=== PATIENT | male | born 1995 | race Two or more races ===

== ENCOUNTER 2023-12-03 12:54 | Emergency (ER) | payer SELFPAY ==
[2023-12-03] MEDS: OLANZapine 10 MG in Water For Injection, Sterile 2.1 ML IM ONE ×2 (13:23→21:06)
[2023-12-03 14:02] LABS: BASOPHILS ABSOLUTE AUTO 0.06 K/uL (0.00-0.20); BASOPHILS PERCENT AUTO 0.7 % (0.0-1.0); EOSINOPHILS ABSOLUTE AUTO 0.17 K/uL (0.00-0.45); HEMATOCRIT 46.9 % (42.0-52.0); HEMOGLOBIN 15.3 g/dL (14.0-18.0); IMMATURE GRAN ABSOLUTE AUTO 0.03 K/uL (0.00-0.05); IMMATURE GRAN PERCENT AUTO 0.4 % (0.0-0.4); LYMPHOCYTES ABSOLUTE AUTO 1.95 K/uL (1.00-4.80); LYMPHOCYTES PERCENT AUTO 22.8 % (24.0-44.0); MEAN CORPUSCULAR HEMOGLOBIN 29.4 pg (28.0-32.0); MEAN CORPUSCULAR HGB CONC 32.6 g/dL (32.0-36.0); MEAN PLATELET VOLUME 10.2 fL (9.4-12.4); MONOCYTES ABSOLUTE AUTO 0.58 K/uL (0.00-0.80); MONOCYTES PERCENT AUTO 6.8 % (0.0-8.0); NEUTROPHILS ABSOLUTE AUTO 5.77 K/uL (1.80-7.70); NEUTROPHILS PERCENT AUTO 67.3 % (41.0-71.0); PLATELET COUNT,PLT 245 K/uL (150-400); RED BLOOD CELL COUNT 5.21 M/uL (4.52-5.90); WHITE BLOOD CELL COUNT,WBC 8.56 K/uL (3.9-11.3)
[2023-12-03 14:18] LABS: A/G RATIO 1.1 (0.9-1.6); ACETAMINOPHEN <2.0 ug/mL; ALANINE AMINOTRANSFERASE,ALT 44 IU/L (14-63); ALKALINE PHOSPHATASE 73 U/L (46-116); ASPARTATE AMNIOTRANSFERASE,AST 20 IU/L (15-37); BILIRUBIN TOTAL 1.4 mg/dL (0.2-1.0); BLOOD UREA NITROGEN,BUN 11 mg/dL (7.0-18.0); CALCIUM 9.4 mg/dL (8.5-10.1); CHLORIDE,CL 104 mmol/L (98-107); CREATININE 1.1 mg/dL (0.8-1.3); GLUCOSE RANDOM 113 mg/dL (74-106); MAGNESIUM 2.1 mg/dL (1.8-2.4); POTASSIUM,K 3.6 mmol/L (3.5-5.1); PROTEIN TOTAL,TP 7.7 g/dL (6.4-8.2); SALICYLATE <0.2 mg/dL (0.0-20.0); SODIUM,NA 141 mmol/L (136-148); TSH ULTRASENSITIVE 1.47 uIU/mL (0.36-3.74)
[2023-12-03 14:19] LABS: ESTIMATED GFR 93 mL/min (>60); ETHANOL BLOOD MEDICAL < 3.0 mg/dL
[2023-12-03 14:19] LABS: APPEARANCE,URINE CLEAR; BILIRUBIN,URINE NEGATIVE (NEGATIVE); COLOR,URINE YELLOW; GLUCOSE,URINE NEGATIVE (NEGATIVE); KETONES,URINE NEGATIVE (NEGATIVE); LEUKOCYTE ESTERASE,URINE NEGATIVE (NEGATIVE); NITRITE,URINE NEGATIVE (NEGATIVE); OCCULT BLOOD,URINE NEGATIVE (NEGATIVE); PROTEIN,URINE NEGATIVE (NEGATIVE); UROBILINOGEN,URINE 0.2 EU/dL (<2.0)
[2023-12-03 14:27] LABS: AMPHETAMINES SCREEN, URINE NEGATIVE (CUTOFF=500); BARBITURATE SCREEN,URINE NEGATIVE (CUTOFF=200); BENZODIAZEPINES SCREEN,URINE NEGATIVE (CUTOFF=150); BUPRENORPHINE SCREEN,URINE NEGATIVE (CUTOFF=10); METHADONE SCREEN, URINE NEGATIVE (CUTOFF=200); METHAMPHETAMINES SCREEN, URINE NEGATIVE (CUTOFF=500); OXYCODONE SCREEN,URINE NEGATIVE (CUT0FF=100); PCP SCREEN,URINE NEGATIVE (CUTOFF=25); THC SCREEN,URINE 20 NG/ML NEGATIVE (CUTOFF=50)
[2023-12-03 14:51] LABS: CORONAVIRUS COVID-19 NAA NEGATIVE (NEGATIVE); INFLUENZA A NAA NEGATIVE (NEGATIVE); INFLUENZA B NAA NEGATIVE (NEGATIVE); RESPIRATORY SYNCYTIAL VIR NAA NEGATIVE (NEGATIVE)
[2023-12-03 15:50] LABS: EPITHELIAL CELLS,URINE RARE (NONE-FEW); RBC,URINE 0-1 (0-2/HPF); WBC,URINE 0-1 (0-5/HPF)
[2023-12-03 15:51] LABS: BACTERIA,URINE RARE (NEGATIVE)
[2023-12-03] MEDS: LORazepam 2 MG/ML SDV IM ONE (21:07)
[2023-12-04] MEDS ORDERED: droPERidol 5 MG/2 ML SDV IVPUSH PRN (03:28)
[2023-12-04] MEDS ORDERED: OLANZapine 5 MG Tab PO PRN (03:41)
[2023-12-04] MEDS: OLANZapine 10 MG in Water For Injection, Sterile 2.1 ML IM ONE (16:38)
[2023-12-04] MEDS: LORazepam 2 MG/ML SDV IM ONE (16:39)
[2023-12-04] MEDS ORDERED: Ziprasidone Mesylate 10 MG in Water For Injection, Sterile 1.2 ML IM ONE (20:58)
[2023-12-04] MEDS: Ziprasidone Mesylate 20 MG Vial IM ONE (21:10)
[2023-12-04] MEDS: Water For Injection, Sterile 20 ML SDV INJECT ONE (21:28)
== END 2023-12-05 05:48 ==
LOC: MW.ED 12:54
DX: F29 Unspecified psychosis not due to a substance or known physiological condition (principal); Z75.8 Other problems related to medical facilities and other health care
CPT/HCPCS: 0241U; 36415; 80053; 80143; 80179; 80305; 80307; 81001; 83735; 84443; 85025; 93005; 96372; 99285; J2060; J2405; J3486; 93010; J3490

== ENCOUNTER 2024-03-03 12:28 | Emergency (ER) | payer SELFPAY ==
[2024-03-03 13:29] LABS: BASOPHILS ABSOLUTE AUTO 0.05 K/uL (0.00-0.20); BASOPHILS PERCENT AUTO 0.6 % (0.0-1.0); EOSINOPHILS ABSOLUTE AUTO 0.19 K/uL (0.00-0.45); EOSINOPHILS PERCENT AUTO 2.4 % (0.0-6.0); HEMATOCRIT 46.4 % (42.0-52.0); HEMOGLOBIN 15.5 g/dL (14.0-18.0); IMMATURE GRAN ABSOLUTE AUTO 0.02 K/uL (0.00-0.05); IMMATURE GRAN PERCENT AUTO 0.3 % (0.0-0.4); LYMPHOCYTES ABSOLUTE AUTO 2.01 K/uL (1.00-4.80); LYMPHOCYTES PERCENT AUTO 25.9 % (24.0-44.0); MEAN CORPUSCULAR HEMOGLOBIN 29.8 pg (28.0-32.0); MEAN CORPUSCULAR HGB CONC 33.4 g/dL (32.0-36.0); MEAN CORPUSCULAR VOLUME 89.1 fL (83.0-99.0); MEAN PLATELET VOLUME 10.5 fL (9.4-12.4); MONOCYTES PERCENT AUTO 6.4 % (0.0-8.0); NEUTROPHILS ABSOLUTE AUTO 4.99 K/uL (1.80-7.70); NEUTROPHILS PERCENT AUTO 64.4 % (41.0-71.0); PLATELET COUNT,PLT 265 K/uL (150-400); RED BLOOD CELL COUNT 5.21 M/uL (4.52-5.90); WHITE BLOOD CELL COUNT,WBC 7.76 K/uL (3.9-11.3)
[2024-03-03 13:58] LABS: ACETAMINOPHEN <2.0 ug/mL; ALANINE AMINOTRANSFERASE,ALT 61 IU/L (14-63); ALBUMIN 4.2 g/dL (3.4-5.0); ALKALINE PHOSPHATASE 69 U/L (46-116); ASPARTATE AMNIOTRANSFERASE,AST 23 IU/L (15-37); BILIRUBIN TOTAL 0.6 mg/dL (0.2-1.0); BLOOD UREA NITROGEN,BUN 10 mg/dL (7.0-18.0); CALCIUM 9.4 mg/dL (8.5-10.1); CHLORIDE,CL 101 mmol/L (98-107); CREATININE 1.3 mg/dL (0.8-1.3); EST CRCL DRUG DOSING (CG) 101.08 mL/min; GLUCOSE RANDOM 136 mg/dL (74-106); MAGNESIUM 2.1 mg/dL (1.8-2.4); POTASSIUM,K 3.5 mmol/L (3.5-5.1); PROTEIN TOTAL,TP 8.3 g/dL (6.4-8.2); SODIUM,NA 138 mmol/L (136-148); TSH ULTRASENSITIVE 1.65 uIU/mL (0.36-3.74)
[2024-03-03 13:59] LABS: ESTIMATED GFR 75 mL/min (>60); ETHANOL BLOOD MEDICAL < 3.0 mg/dL
[2024-03-03] MEDS: OLANZapine 5 MG Tab.DIS PO ONE (15:19)
[2024-03-03 15:41] LABS: APPEARANCE,URINE CLEAR; BILIRUBIN,URINE NEGATIVE (NEGATIVE); COLOR,URINE YELLOW; GLUCOSE,URINE NEGATIVE (NEGATIVE); KETONES,URINE NEGATIVE (NEGATIVE); LEUKOCYTE ESTERASE,URINE NEGATIVE (NEGATIVE); NITRITE,URINE NEGATIVE (NEGATIVE); OCCULT BLOOD,URINE NEGATIVE (NEGATIVE); PROTEIN,URINE NEGATIVE (NEGATIVE); UROBILINOGEN,URINE 0.2 EU/dL (<2.0)
[2024-03-03 15:50] LABS: AMPHETAMINES SCREEN, URINE NEGATIVE (CUTOFF=500); BARBITURATE SCREEN,URINE NEGATIVE (CUTOFF=200); BENZODIAZEPINES SCREEN,URINE NEGATIVE (CUTOFF=150); BUPRENORPHINE SCREEN,URINE NEGATIVE (CUTOFF=10); METHADONE SCREEN, URINE NEGATIVE (CUTOFF=200); METHAMPHETAMINES SCREEN, URINE NEGATIVE (CUTOFF=500); OXYCODONE SCREEN,URINE NEGATIVE (CUT0FF=100); PCP SCREEN,URINE NEGATIVE (CUTOFF=25); THC SCREEN,URINE 20 NG/ML NEGATIVE (CUTOFF=50)
[2024-03-03 15:51] LABS: BACTERIA,URINE FEW (NEGATIVE); EPITHELIAL CELLS,URINE FEW (NONE-FEW); RBC,URINE 0-1 (0-2/HPF); WBC,URINE 0-3 (0-5/HPF)
[2024-03-04] MEDS: OLANZapine 5 MG Tab.DIS PO ONE (01:26)
== END 2024-03-04 01:45 ==
LOC: MW.ED 12:28
DX: F29 Unspecified psychosis not due to a substance or known physiological condition (principal); Z79.899 Other long term (current) drug therapy; Z75.8 Other problems related to medical facilities and other health care
CPT/HCPCS: 36415; 80053; 80143; 80179; 80305; 80307; 81001; 83735; 84443; 85025; 99284; A9270